=== PATIENT | male | born 1990 | race Caucasian/White ===

== ENCOUNTER → 2022-08-15 | Outpatient (CLI) | payer BC ==
--- NOTE | 2022-08-15 23:40 | MR ---
EXAMINATION TYPE: MR lumbar spine wo con DATE OF EXAM: 08/15/2022 COMPARISON: None HISTORY: Muscle spasms, pain when sitting, tightness in scrotum, pain that radiates down left leg, so metimes right. CONTRAST: 0 mL intravenous Gadavist. TECHNIQUE: Multiplanar, multisequence images of the lumbar spine were acquired. FINDINGS: L5-S1: No significant disc bulge or disc herniation. No spinal canal stenosis. No foraminal stenosi s. L4-L5: No significant disc bulge or disc herniation. No spinal canal stenosis. No foraminal stenosi s. L3-L4: No significant disc bulge or disc herniation. No spinal canal stenosis. No foraminal stenosi s. 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 Residual disc is anterior. L2-L3: No significant disc bulge or disc herniation. No spinal canal stenosis. No foraminal stenosi s. L1-L2: No significant disc bulge or disc herniation. No spinal canal stenosis. No foraminal stenosi s. T12-L1: No significant disc bulge or disc herniation. No spinal canal stenosis. No foraminal stenos is. IMPRESSION: 1. No significant spinal canal or neural foraminal stenosis. 2. Congenital fusion L3-L4
== END | disposition home or self-care (01) ==
LOC: RADMRIMAIN 21:30
PROVIDERS: ATTEND Family Medicine
DX: M51.16 Intervertebral disc disorders with radiculopathy, lumbar region (principal); M46.06 Spinal enthesopathy, lumbar region; M51.46 Schmorl's nodes, lumbar region; M43.26 Fusion of spine, lumbar region
CPT/HCPCS: 72148

== ENCOUNTER → 2023-01-28 | Outpatient (CLI) | payer BC ==
--- NOTE | 2023-01-29 12:57 | MR ---
EXAMINATION TYPE: MR hip LT wo con DATE OF EXAM: 01/28/2023 COMPARISON: None. HISTORY: Left hip pain for 1 year with no relief after physical therapy Standard multiplanar, multisequence MRI departmental protocol Multiplanar, multisequence images of the pelvis focusing on left hip were acquired without contrast. FINDINGS: Symmetric mild axial joint space loss in both hips. No significant spurring or subchondral cystic changes present bilaterally. Symmetric tiny joint effusions are presumed physiologic. Femoral head shapes are maintained bilaterally. No suspicious increased T2 signal edema seen bilaterally. No suspicious serpiginous diminished T1 signal to suggest avascular necrosis is identified bilaterally. Muscle bulk is symmetric and within normal limits. There is no bulky groin adenopathy or suspicious h ernia seen bilaterally. Prostate gland is grossly unremarkable. No suspicious bowel dilatation is seen. No free fluid in the pelvis. Symmetric small scrotal fluid collection or hydroceles incidentally noted. 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
== END | disposition home or self-care (01) ==
LOC: RADMRIMAIN 20:45
PROVIDERS: ATTEND Family Medicine
DX: M16.0 Bilateral primary osteoarthritis of hip (principal); M25.852 Other specified joint disorders, left hip